=== PATIENT | male | born 1990 | race African-American/Black ===

== ENCOUNTER 2017-01-15 | Inpatient (IN) | payer SELFPAY ==
--- NOTE | ~2017-01-15 | PA ---
Unit #: [id number] #: [id number] Patient: CURT GRIDER [id number] [facility] [address] [place] [address] [id number] MR#: [id number] NAME: CURT GRIDER ROOM: P180 Age: 26 Sex: M Admission Date: 01/15/2017 : 1990 Date of Assessment: Attending Physician: Jose De Jesus Lewis M.D. Admitting Physician: Jose De Jesus Lewis M.D. Primary Care Physician: Generic Doctor Not In System PSYCHIATRIC ASSESSMENT INFORMANTS The patient reliability, fair informant and chart reliability, good. CHIEF COMPLAINT Hearing voices, methamphetamine abuse, and suicidal. HISTORY OF PRESENT ILLNESS Mr. Grider is a 26-year-old male from [facility] presented with the above-mentioned complaint. The patient reports that he was suicidal and hearing things. The patient reported using drugs recently. The patient presented with suicidal ideation, unable to contract for safety. The patient reported he uses heroin and meth daily. The patient reported not sure about the amount, approximately 2 g daily. The patient reported having suicidal ideation and feeling hopeless and worthless. The patient reported hearing voices. The patient reported decreased sleep. The patient currently homeless and needing inpatient admission at this time for psychiatric stabilization. The patient also reported fourth officer/food safety officer is looking for him. The patient reported tobacco use, age of onset 19; opioid, age of onset 19; and amphetamine, age of onset 19. Longest period of sobriety 1 year, last period of sobriety in 2014. History of IV drug abuse. No history of withdrawal such as sleep problem or nervousness. PAST PSYCHIATRIC HISTORY Unremarkable for any history of previous treatment. No history of any suicide attempt. FAMILY HISTORY AND SOCIAL HISTORY The patient has a poor support system. Currently, homeless. No history of any abuse. History of legal charges, details unknown at this time. MEDICAL HISTORY Unremarkable for any chronic medical illness. Musculoskeletal; muscle strength and tone, no atrophy or abnormal movement. Gait normal. MEDICATION HISTORY None. ALLERGIES No known drug allergies. SUBSTANCE ABUSE HISTORY Please see above. Unit #: [id number] #: [id number] Patient: CURT GRIDER REVIEW OF SYSTEMS HEENT: Eyes, clear. Ears, nose, mouth, and throat; clear. CARDIOVASCULAR: Unremarkable. RESPIRATORY: Unremarkable. GI: Unremarkable. : Unremarkable. SKIN: Unremarkable. LYMPH NODE: Unremarkable. NEUROLOGIC: Unremarkable. ENDOCRINE: Unremarkable. HEMATOLOGIC: Unremarkable. ALLERGIC/IMMUNOLOGIC: Unremarkable. MUSCULOSKELETAL: Muscle strength and tone, no atrophy or abnormal movement. Gait normal. MENTAL STATUS EXAMINATION CONSTITUTIONAL: Measurement of vital signs; temperature 99.4, heart rate 106, respiratory rate 17, oxygen saturation 100%, and blood pressure 137/73. Height 5 feet 8 inches and weight 155 pounds. GENERAL APPEARANCE: The patient dressed casually. The patient did not show any facial deformity. MUSCULOSKELETAL: Please see above. PSYCHIATRIC EXAMINATION Description of speech, regular rate. Description of thought process, circumstantial. Description of association, guarded and paranoid. Description of abnormal psychotic thinking; guarded, paranoid, delusional, and hearing voices. Denied any command hallucination. Sad, depressed, and suicidal ideation. Denied any homicidal ideation. Substance abuse. Description of the patient's judgment: Concerning everyday activity, poor. Social situation, poor. Concerning psychiatric condition, poor. Complete mental status examination; oriented in time, place, and person. Recent and remote memory, fair. Attention span and concentration, poor. Language, intact. Fund of knowledge, poor. Vocabulary, poor. Mood and affect, sad and dysphoric. Insight and judgment, fair to poor. ASSETS AND LIABILITIES Assets, the patient is articulate and able to take care of his ADL. Liability, history of substance abuse and depression. ADMITTING DIAGNOSES Psychiatric: Mood disorder, not otherwise specified, F32.9; psychosis, not otherwise specified, F29.0; opioid use disorder, severe, F11.20; and amphetamine use disorder, moderate to severe, F15.20. Secondary diagnosis: Deferred. Medical diagnosis: None. Stressors: Psychosocial stressor. PSYCHIATRIC PLAN AND TREATMENT GOAL AND DISCHARGE PLAN 1. Advised to admit the patient on the inpatient unit. Provide safe, supportive, and structured environment. 2. Ordered labs; CBC, CMP, UA, and UDS. 3. Precaution for aggression and psychosis and SP1 precaution. Unit #: [id number] #: [id number] Patient: CURT GRIDER 4. The patient to attend all the programing on the inpatient unit. Advised to start the patient on Zyprexa 10 mg b.i.d. and Ativan 1 mg b.i.d. and one dose now. The patient to attend all the programing, group therapy, individual therapy, and chemical dependency group. TREATMENT GOAL To attain euthymic mood, gain insight into his problem, and learn coping skills. DISCHARGE PLAN Plan to stabilize the patient and consider followup in outpatient program. ESTIMATED LENGTH OF STAY 3 to 5 days. Dictated by... Lanre Valdez/junior TD: 01/15/2017 14:07 JOB #: [id number] PSYCHIATRIC ASSESSMENT Page 1 of 1 X Jose De Jesus Lewis MD X PSYCHIATRIC ASSESSMENT
--- NOTE | ~2017-01-15 | CO ---
Unit #: [id number] #: [id number] Patient: CURT GRIDER [id number] [place] [address] [id number] I MR#: [id number] NAME: CURT GRIDER ROOM: P180 Age: 26 Sex: M Admission Date: 01/15/2017 : 1990 Attending Physician: Jose De Jesus Lewis M.D. Primary Care Physician: Generic Doctor Not In System Consultation Date: 01/15/2017 CONSULTATION REPORT ORDERING PROVIDER Jose De Jesus Lewis M.D. REASON FOR CONSULT To test for sexually-transmitted infection. SUBJECTIVE The patient reports that he is sexually active. He only has one partner. He does not feel like he is promiscuous. He is having no symptoms, but desires testing for STDs. His chart notes that he has a history of herpes, but he is unclear whether or not he truly does. OBJECTIVE His examination was unremarkable. ASSESSMENT Desire for sexually-transmitted testing. PLAN To get HIV and hepatitis panel, RPR, and gonorrhea and chlamydia. Dictated by... Tresa Shoemaker/junior TD: 01/15/2017 17:19 JOB #: [id number] CONSULTATION REPORT Page 1 of 1 X NAVID RODRIGUEZ APRN CONSULTATION REPORT
--- NOTE | ~2017-01-15 | HP ---
Unit #: [id number] #: [id number] Patient: CURT GRIDER [id number] [place] [address] [id number] I MR#: [id number] NAME: CURT GRIDER ROOM: P180 Age: 26 Sex: M Admission Date: 01/15/2017 : 1990 Attending Physician: Jose De Jesus Lewis M.D. Admitting Physician: Jose De Jesus Lewis M.D. Primary Care Physician: Generic Doctor Not In System HISTORY AND PHYSICAL HISTORY OF PRESENT ILLNESS The patient is a 26-year-old male admitted to [facility] on 01/15/2017, for methamphetamine abuse. PAST MEDICAL HISTORY HSV. PAST SURGICAL HISTORY Patient denies. SOCIAL HISTORY He is unemployed. He is homeless. He uses heroin and methamphetamines on a daily basis. FAMILY MEDICAL HISTORY Noncontributory. ALLERGIES No known drug allergies CURRENT MEDICATIONS The patient is not on any home medications. REVIEW OF SYSTEMS CONSTITUTIONAL: No fever or chills. HEENT: Denies any sore throat, ear pain or runny nose. CARDIOVASCULAR: Denies chest pain, irregular heart rhythm or palpitations. CHEST: Denies shortness of breath or cough. No hemoptysis. GASTROINTESTINAL: Denies nausea, vomiting, diarrhea or chronic constipation. ENDOCRINE: Denies history of increased thirst or urination. No recent significant weight loss or gain. GENITOURINARY: Denies dysuria, frequency, or hematuria. SKIN: Denies any rashes. HEMATOLOGIC: Denies history of increased bleeding or bruising. MUSCULOSKELETAL: Denies any hot, swollen joints. No generalized muscle pain. NEUROLOGIC: Denies problems with vision or speech. No frequent, severe headaches. No numbness, tingling or weakness in any extremities. Denies loss of bladder or bowel control. PHYSICAL EXAMINATION GENERAL: He is awake, alert, and oriented in no acute distress. Unit #: [id number] #: [id number] Patient: CURT GRIDER VITAL SIGNS: Temperature 99.4, heart rate 106, respirations 17, blood pressure 137/73. HEIGHT: 5 feet 8 inches. WEIGHT: 155 pounds. SKIN: Warm and dry without rash or lesion. HEENT: Normocephalic. TMs not viewed. Oral and nasal passages clear. Conjunctivae clear. PERRLA. EOMs intact. NECK: Supple without lymphadenopathy or thyromegaly. HEART: Regular rate and rhythm without murmur. LUNGS: Clear. ABDOMEN: Soft, nontender. : Not done. EXTREMITIES: No evidence of cyanosis, clubbing or edema. Moves all without focal deficit. NEUROLOGICAL: Grossly within normal limits. Cranial Nerves: II: Visual dodson are intact. III, IV AND : Extraocular movements are intact. Pupils are equal, round and reactive to light. V: Facial sensation is grossly normal. VII: Facial movements and expression are normal. VIII: Auditory acuity grossly intact. IX, X: Uvula is midline. Phonation is normal. XI: Patient shrugs shoulders and turns head normally. XII: Tongue protrudes in the midline. Sensory and Motor Function: Sensory and motor sensation is grossly normal. Motor: moves all extremities well. IMPRESSION 1. Psychiatric admission. 2. HSV. RECOMMMENDATIONS 1. Psychiatric, per psychiatrist. 2. Medical, no contraindications to participating in facility activities. MEDICAL PROGNOSIS Good. MEDICAL CONDITION Stable. Dictated by... Tresa Shoemaker/jaxon TD: 01/15/2017 15:38 JOB #: [id number] Unit #: [id number] #: [id number] Patient: CURT GRIDER HISTORY AND PHYSICAL Page 1 of 1 X NAVID RODRIGUEZ APRN HISTORY AND PHYSICAL
--- NOTE | ~2017-01-15 | DS ---
Unit #: [id number] #: [id number] Patient: CURT GRIDER [id number] [facility] [address] [place] [address] [id number] I MR#: [id number] NAME: CURT GRIDER ROOM: 80 Age: 26 Sex: M Admission Date: 01/15/2017 : 1990 Discharge Date: 01/17/2017 Attending Physician: Jose De Jesus Lewis M.D. Primary Care Physician: Generic Doctor Not In System DISCHARGE SUMMARY REASON FOR ADMISSION Hearing voices, drug abuse. DIAGNOSTIC STUDIES LABORATORY DATA: Unremarkable. Urine drugs screen unavailable at this time. HOSPITAL COURSE The patient was admitted to inpatient unit on January 15 and discharged on 01/17/2017. The patient was treated with expressive therapy, medication management, and structured milieu. The patient was responsive to treatment. Subsequently, the patient was discharged with a plan to follow up in outpatient program. DISCHARGE MEDICATION Zyprexa 10 mg at bedtime for psychosis. DISCHARGE DIAGNOSES PSYCHIATRIC: Mood disorder not otherwise specified, F32.9. Psychosis not otherwise specified, F29.0 Rule out psychosis secondary to substance abuse. Opiate use disorder, severe, F11.20. Amphetamine use disorder, severe, F15.20 SECONDARY: Deferred. MEDICAL: None. STRESSORS: Psychosocial stressor. FOLLOWUP CARE The patient to follow up in outpatient clinic as per social services director. CONDITION AT DISCHARGE The patient pleasant, cooperative. Denied any psychotic symptom or any suicidal ideation. PROGNOSIS Guarded. DIET AND ACTIVITY As tolerated. Dictated by... Unit #: [id number] #: [id number] Patient: CURT GRIDER Lanre Valdez/chauncey TD: 01/18/2017 09:56 JOB #: [id number] DISCHARGE SUMMARY Page 1 of 1 X Jose De Jesus Lewis MD X DISCHARGE SUMMARY
--- NOTE | ~2017-01-15 | PN ---
Unit #: [id number] #: [id number] Patient: CURT GRIDER [id number] [facility] [address] [place] [address] [id number] I MR#: [id number] NAME: CURT GRIDER ROOM: P180 Age: 26 Sex: M Admission Date: 01/15/2017 : 1990 Attending Physician: Jose De Jesus Lewis M.D. Admitting Physician: Jose De Jesus Lewis M.D. Primary Care Physician: Generic Doctor Not In System [facility] PROGRESS NOTES DATE 01/16/2017 DISCUSSION Mr. Clement is a 26-year-old male, seen on 01/16/2017. The patient is compliant and cooperative, mood sad and depressed. The patient denied any thoughts of harming self or others, currently on Zyprexa, lorazepam. REVIEW OF SYSTEMS Complete review of systems unremarkable. MENTAL STATUS EXAMINATION General appearance: Patient dressed casually. Attention span and concentration, fair. Oriented in place and person. Mood and affect, labile. Speech, monotone. Thought process, concrete. The patient denied any thoughts of harming self or others. Recent and remote memory, poor. Insight and judgment, poor. DIAGNOSES 1. Mood disorder, NOS. 2. Psychosis, NOS. ASSESSMENT/PLAN Advised to continue with the current medication and therapeutic protocol, and if needed consider further adjustment of medication. Dictated by... Lanre Valdez/osbaldo TD: 01/17/2017 09:48 JOB #: [id number] Unit #: [id number] #: [id number] Patient: CURT GRIDER [facility] PROGRESS NOTES Page 1 of 1 X Jose De Jesus Lewis MD PROGRESS NOTE
[2017-01-16 09:50] LABS: BASOPHIL% 0.6 % (0-2.5); EOSINOPHIL# 0.1 X10e3 (0-0.7); HEMATOCRIT 47.6 % (38.0-50.0); HEMOGLOBIN 15.9 gm/dL (13.0-16.0); LYMPHOCYTE# 1.9 X10e3 (1.0-3.5); LYMPHOCYTE% 42.7 % (17.0-45.0); MEAN CELL VOLUME 95.5 FL (83-96); MEAN CORPUSCULAR HEMOGLOBIN 31.9 PG (28-34); MEAN CORPUSCULAR HGB CONC 33.3 g/dL (30-36); MEAN PLATELET VOLUME 9.3 FL (6.5-11.5); MONOCYTE# 0.4 X10e3 (0-1.0); MONOCYTE% 8.3 % (3.0-12.0); NEUTROPHIL# 2.1 X10e3 (1.5-7.1); NEUTROPHIL% 45.4 % (40-75); PLATELET COUNT 241 X10e3 (140-420); RED BLOOD COUNT 4.98 X10e (3.90-5.60); WHITE BLOOD COUNT 4.5 X10e3 (4.0-10.5)
[2017-01-16 10:07] LABS: DIFF IND NO
[2017-01-16 10:48] LABS: ALBUMIN SERUM 4.1 g/dL (3.5-5.0); BILIRUBIN,TOTAL 0.5 mg/dL (0.2-2.0); BUN/CREATININE RATIO 18.57; CALCIUM SERUM 9.4 mg/dL (8.4-10.2); CREATININE SERUM 0.7 mg/dL (0.6-1.4); GLOM FILT RATE Estimated 153.2 mL/min (>60); POTASSIUM 4.1 mmol/L (3.5-5.1)
[2017-01-19 07:38] LABS: HA AB IGM (HEPPAN) Nonreactive (()); HB CORE AB IGM (HEPPAN) Nonreactive (Nonreactive); HB S AG (HEPPAN) Nonreactive (Nonreactive); HEP C AB (HEPPAN) Nonreactive (Nonreactive); HEP C AB SIGNAL TO CUTOFF 0.03 ratio (<1.00)
== END 2017-01-17 12:40 | disposition home or self-care (01) | DRG 885 ==
LOC: P1E 02:56
PROVIDERS: Family Medicine; Psychiatry & Neurology Psychiatry
DX: F39 Unspecified mood [affective] disorder (principal); F11.20 Opioid dependence, uncomplicated; F15.20 Other stimulant dependence, uncomplicated; F29 Unspecified psychosis not due to a substance or known physiological condition
CPT/HCPCS: 80053; 80074; 85025; 86592; 87806

== ENCOUNTER 2017-02-13 22:43 | Inpatient (IN) | payer SELFPAY ==
[~2017-02-13] VITALS: Ht 172.7 cm; Wt 74.8 kg
--- NOTE | ~2017-02-13 | CO ---
Unit #: [id number] #: [id number] Patient: URBANO GRIDER [id number] [place] [address] [id number] I MR#: [id number] NAME: URBANO GRIDER ROOM: P183 Age: 26 Sex: M Admission Date: 02/14/2017 : 1990 Attending Physician: Jose De Jesus Lewis M.D. Consultation Date: 02/14/2017 CONSULTATION REPORT HISTORY OF PRESENT ILLNESS Urbano reports a history of herpes and had been taking acyclovir in the past for outbreaks. He currently has an outbreak that started about 2 days ago. He has some burning and itching. Has no other complaints. PHYSICAL EXAMINATION CARDIAC: Regular rate and rhythm. No murmurs, gallops, or rubs. RESPIRATORY: Clear to auscultation bilaterally. : Deferred. The patient has a history of HSV at this time. I see no reason to subject him to extensive general exam. ASSESSMENT AND PLAN General herpes. We will begin acyclovir 800 mg p.o. b.i.d. x5 days. Dictated by... Tresa Rodriguez/junior TD: 02/15/2017 03:09 JOB #: [id number] CONSULTATION REPORT Page 1 of 1 X MIGUELITO LOGAN APRN CONSULTATION REPORT
--- NOTE | ~2017-02-13 | HP ---
Unit #: [id number] #: [id number] Patient: URBANO GRIDER [id number] [place] [address] [id number] MR#: [id number] NAME: URBANO GRIDER ROOM: P183 Age: 26 Sex: M Admission Date: 02/14/2017 : 1990 Attending Physician: Jose De Jesus Lewis M.D. Admitting Physician: Jose De Jesus Lewis M.D. Primary Care Physician: Primary Care Physician No HISTORY AND PHYSICAL Urbano is a 26-year-old male admitted on 02/14/2017 to [facility] for substance abuse. He had a previous admission on 01/15/2017. I reviewed the history and physical from that admission and there are no changes other than the fact that Urbano has a history of herpes and complains of current general herpes outbreak. Please see medical consult. Dictated by... Tresa Rodriguez/michelle TD: 02/14/2017 21:01 JOB #: [id number] HISTORY AND PHYSICAL Page 1 of 1 X MIGUELITO LOGAN APRN X HISTORY AND PHYSICAL
--- NOTE | ~2017-02-13 | DS ---
Unit #: [id number] #: [id number] Patient: CURT GRIDER [id number] [facility] [address] [place] [address] [id number] I MR#: [id number] NAME: CURT GRIDER ROOM: P183 Age: 26 Sex: M Admission Date: 02/14/2017 : 1990 Discharge Date: 02/15/2017 Attending Physician: Jose De Jesus Lewis M.D. Primary Care Physician: Primary Care Physician No DISCHARGE SUMMARY REASON FOR ADMISSION Suicidal ideation, detox, paranoia. DIAGNOSTIC STUDIES LABORATORY RESULTS: Urine drug screen positive for amphetamine and marijuana. HOSPITAL COURSE The patient was admitted to inpatient unit on 02/14/2017 and discharged on 02/15/2017. The patient was treated with structured milieu, medication management, psychotherapy. The patient was isolative, somewhat guarded, but denied any thoughts of harming self or others, responsive to treatment. No side effects from medication. The patient was subsequently discharged with a plan to follow up in outpatient program. DISCHARGE MEDICATIONS Zyprexa 10 mg at bedtime for psychosis, Celexa 20 mg daily for mood symptoms, and acyclovir 800 mg b.i.d. for 5 days for genital herpes. DISCHARGE DIAGNOSES Psychiatric: Mood disorder, not otherwise specified, F32.9; psychosis, not otherwise specified, F29.0; amphetamine use disorder, severe, F15.20; cannabis abuse disorder, moderate, F12.20. Secondary diagnosis: Deferred. Medical diagnosis: History of genital herpes. Stressors: Psychosocial stressor. DISCHARGE INSTRUCTIONS The patient to follow up in outpatient clinic as per social service agency director. CONDITION ON DISCHARGE The patient was pleasant and cooperative. Denied any auditory or visual hallucination. Denied any suicidal or homicidal ideation. PROGNOSIS Guarded. DIET AND ACTIVITY As tolerated. Unit #: [id number] #: [id number] Patient: CURT GRIDER Dictated by... Lanre Valdez/junior TD: 02/15/2017 15:30 JOB #: [id number] DISCHARGE SUMMARY Page 1 of 1 X Jose De Jesus Lewis MD DISCHARGE SUMMARY
--- NOTE | ~2017-02-13 | PA ---
Unit #: [id number] #: [id number] Patient: CURT GRIDER [id number] [facility] [address] [place] [address] [id number] I MR#: [id number] NAME: CURT GRIDER ROOM: P183 Age: 26 Sex: M Admission Date: 02/14/2017 : 1990 Date of Assessment: Attending Physician: Jose De Jesus Lewis M.D. Admitting Physician: Jose De Jesus Lewis M.D. Primary Care Physician: Primary Care Physician No PSYCHIATRIC ASSESSMENT INFORMANTS The patient reliability, fair informant and chart reliability, good. CHIEF COMPLAINT Suicidal ideation and using meth. HISTORY OF PRESENT ILLNESS Mr. Grider is a 26-year-old male, well known to us from his previous admission on 01/15/2017, presented with the above-mentioned complaint. The patient reported feeling suicidal, thoughts of overdosing on heroin. The patient reported that he is hearing voices and confused because he does not know if the voices are real or in his head. The patient believes that he is being talked about and is always left out of there. The patient reports that there is a conspiracy theory against him. The patient reported that he was at [facility] a month ago and was discharged himself due to feeling like the nurses and the patients were after him. The patient reports that he believes that he is having suicidal ideation and it has increased over the last 2 months and using drugs more. The patient reported that his tolerance level is getting higher. The patient reported using 20 mL of IV heroin b.i.d. and 30 mL of meth five times. The patient reports "I think I maybe schizophrenic." Needing inpatient admission at this time for psychiatric stabilization. PAST PSYCHIATRIC HISTORY Remarkable for history of previous admission at [facility] on 01/15/2017. No known history of any suicide attempt. FAMILY HISTORY AND SOCIAL HISTORY The patient has a poor support system. Currently, homeless. No history of any abuse. No legal charges, but history of charges in the past. MEDICAL HISTORY Unremarkable for any chronic medical illness. Musculoskeletal; muscle strength and tone, no atrophy or abnormal movement. Gait normal. MEDICATION HISTORY None. The patient was on Zyprexa. ALLERGIES No known drug allergies. SUBSTANCE ABUSE HISTORY The patient admitted using meth and opioids. Unit #: [id number] #: [id number] Patient: CURT GRIDER REVIEW OF SYSTEMS HEENT: Eyes, clear. Ears, nose, mouth, and throat; clear. CARDIOVASCULAR: Unremarkable. RESPIRATORY: Unremarkable. GI: Unremarkable. : Unremarkable. SKIN: Unremarkable. LYMPH NODE: Unremarkable. NEUROLOGIC: Unremarkable. ENDOCRINE: Unremarkable. HEMATOLOGIC: Unremarkable. ALLERGIC/IMMUNOLOGIC: Unremarkable. MUSCULOSKELETAL: Muscle strength and tone, no atrophy or abnormal movement. Gait normal. MENTAL STATUS EXAMINATION CONSTITUTIONAL: Measurement of vital signs; temperature 98.2, heart rate 98, respiratory rate 17, oxygen saturation 100%, and blood pressure 117/75. Height 5 feet 8 inches and weight 165 pounds. GENERAL APPEARANCE: The patient dressed casually. No facial deformity noted. MUSCULOSKELETAL: Please see above. PSYCHIATRIC EXAMINATION Description of speech; regular rate, normal volume, normal articulation, coherent, and spontaneous. Description of thought process, goal directed. Description of association, intact. Description of abnormal psychotic thinking; the patient reported feeling paranoid, delusional, suicidal ideation, and mood lability. Description of the patient's judgment: Concerning everyday activity, poor. Social situation, poor. Concerning psychiatric condition, poor. Complete mental status examination; oriented in time, place, and person. Recent and remote memory, fair. Attention span and concentration, fair. Language, able to name object and repeat phrases. Fund of knowledge, aware of current event and passive vocabulary intact. Mood and affect, sad and dysphoric. Insight and judgment, fair to poor. ASSETS AND LIABILITIES Assets, the patient is articulate and able to take care of his ADL. Liability; history of depression, substance abuse, and psychosis. ADMITTING DIAGNOSES Psychiatric: Mood disorder, not otherwise specified, F32.9; psychosis, not otherwise specified, F29.0; opioid use disorder, severe, F11.20; and methamphetamine use disorder, severe, F15.20. Secondary diagnosis: Deferred. Medical diagnosis: None. Stressors: Psychosocial stressors. PSYCHIATRIC PLAN AND TREATMENT GOAL AND DISCHARGE PLAN 1. Advised to admit the patient on the inpatient unit. Provide safe, supportive, and structured environment. 2. Ordered labs; CBC, CMP, UA, and UDS. Unit #: [id number] #: [id number] Patient: CURT GRIDER 3. Precaution for aggression, self-harm, and precaution for psychosis. 4. Detox protocol and detox monitoring. 5. Advised to resume the patient's medications Zyprexa 10 mg at bedtime and trazodone 50 mg at bedtime for sleep. The patient to attend group therapy, individual therapy, chemical dependency group, and family therapy. TREATMENT GOAL To attain euthymic mood, gain insight into his problem, and learn coping skills. DISCHARGE PLAN Plan to stabilize the patient and consider followup in outpatient program. ESTIMATED LENGTH OF STAY 3 to 5 days. Dictated by... Jose De Jesus Lewis M.D. YANELY/junior TD: 02/14/2017 18:32 JOB #: [id number] PSYCHIATRIC ASSESSMENT Page 1 of 1 X Jose De Jesus Lewis MD X PSYCHIATRIC ASSESSMENT
[2017-02-15 10:00] LABS: BASOPHIL# 0.1 X10e3 (0-0.3); BASOPHIL% 1.4 % (0-2.5); EOSINOPHIL# 0.2 X10e3 (0-0.7); HEMOGLOBIN 14.2 gm/dL (13.0-16.0); LYMPHOCYTE# 2.5 X10e3 (1.0-3.5); LYMPHOCYTE% 48.2 % (17.0-45.0); MEAN CELL VOLUME 92.9 FL (83-96); MEAN CORPUSCULAR HEMOGLOBIN 31.5 PG (28-34); MEAN CORPUSCULAR HGB CONC 33.9 g/dL (30-36); MEAN PLATELET VOLUME 8.5 FL (6.5-11.5); MONOCYTE% 19.9 % (3.0-12.0); NEUTROPHIL# 1.4 X10e3 (1.5-7.1); NEUTROPHIL% 27.5 % (40-75); PLATELET COUNT 242 X10e3 (140-420); RED BLOOD COUNT 4.52 X10e (3.90-5.60); RED CELL DISTRIBUTION WIDTH 12.6 % (11.0-15.5); WHITE BLOOD COUNT 5.2 X10e3 (4.0-10.5)
[2017-02-15 10:14] LABS: DIFF IND YES
[2017-02-15 10:20] LABS: ALBUMIN SERUM 3.3 g/dL (3.5-5.0); BILIRUBIN,TOTAL 0.3 mg/dL (0.2-2.0); CALCIUM SERUM 8.9 mg/dL (8.4-10.2); CREATININE SERUM 0.6 mg/dL (0.6-1.4); GLOM FILT RATE Estimated 163.2 mL/min (>60); POTASSIUM 4.6 mmol/L (3.5-5.1); PROTEIN TOTAL SERUM 6.3 g/dL (6.0-8.3)
[2017-02-15 10:27] LABS: AMPHETAMINE POS (NEG); BARBITURATES NEG (NEG); BENZODIAZEPINES NEG (NEG); COCAINE NEG (NEG); MARIJUANA POS (NEG); OPIATES NEG (NEG); TRICYCLIC ANTIDEPRESSANTS NEG (NEG); U METHADONE NEG (NEG)
[2017-02-15 10:36] LABS: URINE APPEARANCE CLEAR; URINE BILIRUBIN NEG (NEG); URINE BLOOD NEG (NEG); URINE COLOR YELLOW; URINE GLUCOSE NEG (NEG); URINE KETONE NEG (NEG); URINE LEUKOCYTE ESTERASE NEG (NEG); URINE NITRATE NEG (NEG); URINE PH 7.5 (5-8); URINE PROTEIN NEG (NEG); URINE SPECIFIC GRAVITY 1.008 (1.003-1.035)
[2017-02-15 12:28] LABS: PLATELET ESTIMATE NORMAL (NORMAL); RBC NORMAL YES; TOXIC GRANULATION SL
== END 2017-02-15 14:25 | DRG 885 ==
LOC: P1E 02-14 02:52
PROVIDERS: Psychiatry & Neurology Psychiatry
DX: F39 Unspecified mood [affective] disorder (principal); F11.20 Opioid dependence, uncomplicated; F15.20 Other stimulant dependence, uncomplicated
CPT/HCPCS: 80053; 80307; 81003; 85025

== ENCOUNTER 2017-02-22 15:56 | Emergency (ER) | payer SELFPAY ==
[~2017-02-22] VITALS: Ht 172.7 cm; Wt 74.8 kg
== END 2017-02-22 19:30 | disposition left against medical advice (07) ==
LOC: CED 15:56
DX: Z53.21 Procedure and treatment not carried out due to patient leaving prior to being seen by health care provider (principal)